=== PATIENT | female | born 1930 | race Caucasian/White ===

== ENCOUNTER 2020-08-13 07:04 | Emergency (ER) | payer OTHER ==
[~2020-08-13] VITALS: Ht 147.3 cm; Wt 68.0 kg
[2020-08-13] MEDS ORDERED: DEXTROSE 10% 1,000 ML IV ONE (07:45)
[2020-08-13 08:14] LABS: Basophils # (auto) 0 10 ^3/uL (0-0.2); Eosinophils # (auto) 0 10 ^3/uL (0-0.8); Hematocrit 35.5 % (36.0-46.0); Hemoglobin 11.1 g/dL (12.2-16.2); Lymphocytes # (auto) 0.9 10 ^3/uL (0.4-5.4); Mean Corpuscular Hemoglobin 26.6 pg (28.0-32.0); Mean Corpuscular Hgb Conc. 31.4 g/dL (32.0-36.0); Monocytes # (auto) 0.3 10 ^3/uL (0-1.3)
[2020-08-13 08:17] LABS: Basophils % (auto) 0.3 % (0.0-2.0); Eosinophils % (auto) 0.1 % (0.0-7.0); Lymphocytes % (auto) 10.8 % (10.0-50.0); Mean Corpuscular Volume 84.6 fL (80.0-100.0); Monocytes % (auto) 3.4 % (0.0-12.0); Neutrophils # (auto) 7.2 10 ^3/uL (1.6-8.6); Neutrophils % (auto) 85.4 % (37.0-80.0); Platelet Count (auto) 322 10^3/uL (140-450); Red Blood Cells 4.19 10^6/uL (4.0-5.20); White Blood Cell 8.5 10^3/uL (4.4-10.8)
[2020-08-13 08:27] LABS: INR 0.99 (0.9-1.15); Partial Thromboplastin Time 25.3 sec (23.0-31.2)
[2020-08-13 08:30] LABS: Albumin 3.2 g/dL (3.4-5.0); Calcium 8.7 mg/dL (8.5-10.1); Potassium 3.4 mmol/L (3.5-5.1)
[2020-08-13 08:35] LABS: Bilirubin, Total 0.3 mg/dL (0.2-1.0); Total Protein 7.9 g/dL (6.4-8.2)
[2020-08-13 08:37] LABS: Urine Bacteria MOD /hpf (None Seen); Urine Blood Negative /uL (Negative); Urine Specific Gravity 1.006 (1.001-1.035); Urine WBC 1 /hpf (0 - 5)
[2020-08-13 12:03] VITALS: BP 136/44
[2020-08-13] MEDS ORDERED: POTASSIUM EFFERVESENT TAB 25 MEQ PO ONE (12:45)
== END 2020-08-13 14:10 | disposition home or self-care (01) ==
LOC: EDBD 07:04 → ER 07:04
DX: E16.2 Hypoglycemia, unspecified (principal); G93.41 Metabolic encephalopathy; T68.XXXA Hypothermia, initial encounter; E87.6 Hypokalemia; E44.1 Mild protein-calorie malnutrition; I10 Essential (primary) hypertension; Z68.31 Body mass index [BMI] 31.0-31.9, adult; Z88.0 Allergy status to penicillin; Z88.6 Allergy status to analgesic agent
CPT/HCPCS: 36415; 71045; 80053; 81001; 82962; 83880; 85025; 85610; 85730; 93005; 96365; 96366; 99291